=== PATIENT | male | born 2000 | race Two or more races ===

== ENCOUNTER 2024-04-24 12:52 | Emergency (ER) | payer OTHER ==
[2024-04-24 13:22] VITALS: BP 159/90; PULSE 87; RESP 20; TEMP 98.8; BMI 26.2
[2024-04-24] MEDS ORDERED: FLUORESCEIN NA 1 EA STRIP ONE (14:28)
[2024-04-24] MEDS: FLUORESCEIN NA 1 EA STRIP OD ONE (14:30)
[2024-04-24] MEDS ORDERED: ERYTHROMYCIN 0.5% OPHTHALMIC OINTMENT 3.5 GM TUBE ONE (15:10)
== END 2024-04-24 16:07 | disposition home or self-care (01) ==
LOC: JER 12:52 → JERFT 12:52
PROC: 08C8XZZ Extirpation of Matter from Right Cornea, External Approach (ICD-10-PCS; principal; 2024-04-24)
DX: T15.91XA Foreign body on external eye, part unspecified, right eye, initial encounter (principal)
CPT/HCPCS: 99283-25